=== PATIENT | female | born 1970 | race Caucasian/White ===

== ENCOUNTER 2018-05-19 09:15 | Emergency (ER) | payer OTHER ==
[~2018-05-19] VITALS: Ht 167.6 cm; Wt 72.6 kg
[2018-05-19 10:14] LABS: INFLUENZA A ANTIGEN None Detected (None Detect); INFLUENZA B ANTIGEN None Detected (None Detect)
[2018-05-19] MEDS ORDERED: ZPAK PO (10:19)
[2018-05-19] MEDS ORDERED: PREDNISONE 20 M20 M1 PO (10:19)
[2018-05-19] MEDS ORDERED: VENTOLIN HFA 1818 GM INH (10:19)
[2018-05-19] MEDS ORDERED: TESSALON PERLE100 MG PO (10:19)
[2018-05-19 10:25] VITALS: BP 114/77
== END 2018-05-19 10:25 | disposition home or self-care (01) ==
LOC: M.ERS 09:15
PROVIDERS: Family Medicine
DX: J40 Bronchitis, not specified as acute or chronic (principal); Z90.710 Acquired absence of both cervix and uterus; Z88.1 Allergy status to other antibiotic agents; Z88.8 Allergy status to other drugs, medicaments and biological substances

== ENCOUNTER 2019-02-19 13:38 | Emergency (ER) | payer OTHER ==
[~2019-02-19] VITALS: Ht 167.6 cm; Wt 77.1 kg
[~2019-02-19 13:38] MED LIST: PREDNISONE 20 M20 M1 PO; TESSALON PERLE100 MG PO; VENTOLIN HFA 1818 GM INH; ZPAK PO
[2019-02-19] MEDS ORDERED: SPIRIVA INH (13:54)
[2019-02-19] MEDS ORDERED: FLEXERIL PO (13:54)
[2019-02-19] MEDS ORDERED: IBU800 MG PO (13:55)
[2019-02-19 14:16] LABS: INFLUENZA A ANTIGEN Negative (Negative); INFLUENZA B ANTIGEN Negative (Negative)
[2019-02-19] MEDS ORDERED: ZPAK PO (15:04)
[2019-02-19] MEDS ORDERED: PREDNISONE 10 M10 MG PO (15:04)
[2019-02-19] MEDS ORDERED: PROAIR HFA8.5 GM INH (15:04)
[2019-02-19] MEDS ORDERED: TESSALON PERLE100 M1 PO (15:04)
[2019-02-19 15:10] VITALS: BP 135/82
== END 2019-02-19 15:11 | disposition home or self-care (01) ==
LOC: M.ERS 13:38
PROVIDERS: Physician Assistant
DX: J40 Bronchitis, not specified as acute or chronic (principal); J06.9 Acute upper respiratory infection, unspecified; M79.7 Fibromyalgia; J44.9 Chronic obstructive pulmonary disease, unspecified; F17.210 Nicotine dependence, cigarettes, uncomplicated; M19.90 Unspecified osteoarthritis, unspecified site; Z88.1 Allergy status to other antibiotic agents; Z88.8 Allergy status to other drugs, medicaments and biological substances; Z90.710 Acquired absence of both cervix and uterus